=== PATIENT | male | born 1970 | race African-American/Black ===

== ENCOUNTER 2020-03-06 15:27 | Emergency (ER) | payer OTHER ==
[2020-03-06] MEDS ORDERED: Morphine 2 MG/ML SYRINGE ONE (16:01)
[2020-03-06] MEDS ORDERED: Ketorolac Tromethamine 30 MG/ML VIAL ONE (16:01)
--- NOTE | 2020-03-06 16:09 | RAD ---
XR Knee Lt 4 View STANDARD History: Injury Comparison: None. Findings: No acute displaced fracture or malalignment. No significant joint effusion. Impression: No acute osseous abnormality.
[2020-03-06] MEDS ORDERED: Acetaminophen 325 MG TAB ONE (16:31)
[2020-03-06] MEDS ORDERED: Ondansetron ODT 4 MG TAB ONE (16:31)
[2020-03-06] MEDS ORDERED: HYDROcodone/Acetaminophen 10/325 mg Tablet ONE (16:31)
== END 2020-03-06 17:05 | disposition home or self-care (01) ==
LOC: MADERS 15:27
DX: S89.92XA Unspecified injury of left lower leg, initial encounter (principal); V29.9XXA Motorcycle rider (driver) (passenger) injured in unspecified traffic accident, initial encounter
CPT/HCPCS: 96374; 96375; J1885; J2270; Q0162